=== PATIENT | female | born 1975 ===

== ENCOUNTER 2020-06-19 07:53 | Day surgery (SDC) | payer OTHER ==
[~2020-06-19 07:53] MED LIST: CIPRO500 MG PO; ESCITA PO; LOVENOX30 MG/0.3 SUBCUTANEO; MAXFE CAPLET1 EACH PO; OXYC1TAB9 PO; PROZAC20 MG PO; TOPROL XL25 M1 PO; [UNRECOGNIZED DRUG - OTHER] PO; [UNRECOGNIZED DRUG - OTHER] PO; [UNRECOGNIZED DRUG - OTHER] PO
[2020-06-19] MEDS ORDERED: PERCOCET 5-3251 EACH PO (17:06)
== END 2020-06-19 19:00 | disposition home or self-care (01) ==
LOC: SURH 07:53 → CIR.AMB 07:53 → O/R 07:53 → EDSTATUS 11:30 → SURH 11:30 → CIR.AMB 19:00 → O/R 19:50
PROVIDERS: ATTEND Obstetrics & Gynecology Gynecology
DX: D27.1 Benign neoplasm of left ovary (principal); N73.6 Female pelvic peritoneal adhesions (postinfective); Z20.822 Contact with and (suspected) exposure to COVID-19